=== PATIENT | female | born 1995 | race American Indian/Alaskan Native ===

== ENCOUNTER 2020-09-01 12:44 | Outpatient (CLI) | payer MEDICAID ==
--- NOTE | 2020-09-01 14:40 | XRay Report ---
LEFT FOOT 3 VIEWS INDICATION: PAIN IN LEFT FOOT. COMPARISON: None. IMPRESSION: A nondisplaced fracture is identified at the base of the fifth metatarsal. No significan t calcified callus is appreciated. The remaining bony structures are intact. No significant DJD. The re is mild distal soft tissue swelling. Signer Name: Serge Gautam Jr, MD Signed: 09/01/2020 2:36 PM Workstation Name: [id number]
== END 2020-09-01 12:45 | disposition home or self-care (01) ==
LOC: XRAY 12:44 → EDSTATUS 12:45
PROVIDERS: ATTEND Orthopaedic Surgery
DX: S92.355A Nondisplaced fracture of fifth metatarsal bone, left foot, initial encounter for closed fracture (principal); X58.XXXA Exposure to other specified factors, initial encounter; Y93.89 Activity, other specified; Y92.89 Other specified places as the place of occurrence of the external cause; Y99.8 Other external cause status